=== PATIENT | male | born 1970 | race Hispanic/Latino ===

== ENCOUNTER 2016-11-14 11:37 | Emergency (ER) | payer OTHER ==
[2016-11-14 11:37] VITALS: BMI 23.0
[2016-11-14 11:48] VITALS: TEMP 98.3; O2SAT 99
--- NOTE | 2016-11-14 12:13 | ED PDOC ---
Arrival/HPI - General Chief Complaint: Back Pain Time Seen by Provider: 11/14/16 11:58 Historian: Patient - History of Present Illness Time/Duration: Other (5 days) Symptom Onset: Sudden Symptom Course: Unchanged Quality: Aching Severity Level: Moderate Associated Symptoms (Text): 11/14/16 12:10 Patient reports that at work 5 days prior to arrival he was lifting some heavy boxes and developed acute onset of left lower back pain. He was seen at another hospital emergency department that day and had x-rays done and was given a prescription for Valium and Percocet. He followed up with his compensation physician 2 days later and was given a prescription for Naprosyn which he was unable to fill until today and told to stop the Valium and Percocet. He was seen by a different compensation physician yesterday and cleared to go back to work today. 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 He denies abdominal pain nausea vomiting or diarrhea. No genitourinary symptoms. No radiation of the pain. No numbness tingling or paresthesias. No weakness. Past Medical History - Past History Past History: No Previous - Infectious Disease Hx of Infectious Diseases: None - Tetanus Immunization Tetanus Immunization: Up to Date - Past Medical History Past Medical History: No Previous - Renal Hx Kidney Stones: Yes - Hematological/Oncological Hx Blood Transfusions: No Hx Blood Transfusion Reaction: No - Musculoskeletal/Rheumatological Hx Back Pain: Yes - Gastrointestinal Hx Gastroesophageal Reflux: Yes - Psychiatric Hx Depression: No Hx Emotional Abuse: No Hx Physical Abuse: No - Past Surgical History Past Surgical History: No Previous - Surgical History Hx Orthopedic Surgery: Yes (L knee) - Anesthesia Hx Anesthesia: Yes Hx Anesthesia Reactions: No Hx Malignant Hyperthermia: No - Suicidal Assessment Feels Threatened In Home Enviroment: No Family/Social History - Physician Review Nursing Documentation Reviewed: Yes Family/Social History: Unknown Family HX Smoking Status: Never Smoked Hx Alcohol Use: No Hx Substance Use Treatment: No Allergies/Home Meds Allergies/Adverse Reactions: Allergies No Known Allergies Allergy (Verified 11/14/16 11:45) Home Medications: Home Meds Medication Instructions Recorded Confirmed Naproxen [Naprosyn] 500 mg PO Q12 11/14/16 11/14/16 Review of Systems - Physician Review All systems were reviewed & negative as marked: Yes - Review of Systems Constitutional: Normal Respiratory: Normal Cardiovascular: Normal Gastrointestinal: Normal Genitourinary Male: Normal Neurological: Normal Physical Exam Vital Signs Temp Pulse Resp BP Pulse Ox 11/14/16 12:29 98 H 17 115/85 99 11/14/16 11:39 98.3 F 110 H 19 111/81 99 Temperature: Afebrile Blood Pressure: Normal Pulse: Regular Respiratory Rate: Normal Appearance: Positive for: Well-Appearing, Non-Toxic, Uncomfortable Pain Distress: Mild Mental Status: Positive for: Alert and Oriented X 3 - Systems Exam Head: Present: Atraumatic, Normocephalic Neck: Present: Normal Range of Motion Respiratory/Chest: Present: Clear to Auscultation, Good Air Exchange. No: Respiratory Distress, Accessory Muscle Use Cardiovascular: Present: Regular Rate and Rhythm, Normal S1, S2. No: Murmurs Abdomen: Present: Normal Bowel Sounds. No: Tenderness, Distention, Peritoneal Signs, Rebound, Guarding Back: Present: Normal Inspection, Other (Points to the left lumbosacral paraspinous. No sciatic notch tenderness). No: CVA Tenderness, Midline Tenderness, Paraspinal Tenderness, Pain with Leg Raise Lower Extremity: Present: Normal Inspection. No: Edema Neurological: Present: GCS=15, CN II-XII Intact, Speech Normal, Motor Func Grossly Intact Skin: Present: Warm, Dry, Normal Color. No: Rashes Psychiatric: Present: Alert, Oriented x 3, Normal Insight, Normal Concentration Medical Decision Making ED Course and Treatment: 11/14/16 12:20 Add Flexeril to the Naprosyn prescription he filled today. Rest and moist heat. Follow with compensation M.D. A note for work was given. Follow up in ER as needed. Patient may need advanced imaging. - Medication Orders Current Medication Orders: Discontinued Medications Cyclobenzaprine HCl (Flexeril) 10 mg PO ONCE BRIE Last Admin: 11/14/16 12:25 Dose: 10 mg Ketorolac Tromethamine (Toradol) 60 mg IM ONCE ONE Stop: 11/14/16 12:10 Last Admin: 11/14/16 12:25 Dose: 60 mg Disposition/Present on Arrival - Present on Arrival Any Indicators Present on Arrival: No History of DVT/PE: No History of Uncontrolled Diabetes: No Urinary Catheter: No History of Decub. Ulcer: No History Surgical Site Infection Following: None - Disposition Have Diagnosis and Disposition been Completed?: Yes Diagnosis: Lumbar spine strain Disposition: HOME/ ROUTINE Disposition Time: 12:21 Patient Plan: Discharge Condition: GOOD Discharge Instructions (ExitCare): Acute Low Back Pain (ED) Additional Instructions: Rest and moist heat. Follow-up with compensation M.D. Follow up in ER as needed. Add Flexeril to the Naprosyn prescription filled today. Prescriptions: Cyclobenzaprine [Flexeril] 5 mg PO Q8 #15 tab Referrals: Milton Nick MD [Primary Care Provider] - Follow up with primary Forms: [facility] (Tajik), WORK NOTE
[2016-11-14 12:34] VITALS: BP 115/85; PULSE 98; RESP 17
== END 2016-11-14 12:45 | disposition home or self-care (01) ==
LOC: ED 11:37
DX: S39.012A Strain of muscle, fascia and tendon of lower back, initial encounter (principal); X50.0XXA Overexertion from strenuous movement or load, initial encounter; Y99.0 Civilian activity done for income or pay
CPT/HCPCS: 96372; 99284; J1885

== ENCOUNTER 2016-11-18 08:47 | Emergency (ER) | payer OTHER ==
[2016-11-18 08:47] VITALS: BMI 23.0
--- NOTE | 2016-11-18 09:37 | ED PDOC ---
Arrival/HPI <Dante Malhotra - Last Filed: 11/18/16 12:14> - General Historian: Patient EM Caveat: Acuity of Condition - History of Present Illness Time/Duration: > week Symptom Onset: Sudden Symptom Course: Unchanged Quality: Aching Severity Level: 6 Activities at Onset: Other (lifting boxes) Context: Work <Osbaldo Thomson - Last Filed: 11/18/16 15:22> - General Chief Complaint: Back Pain Time Seen by Provider: 11/18/16 08:55 - History of Present Illness Narrative History of Present Illness (Text): Patient is a 46 year old male who presents to the [facility] ED 11/18/16 with complaints of hip pain bilaterally as well as pain in the coccyx region. Patient states that the pain was trauma induced on 11/09 while he was lifting boxes at his job. He states that he felt a crack when lifting the box and immediately had problems ambulating on his left foot, which has now resolved. Patient states that his hip pain radiates to his mid thigh but that overall the pain is improving with current pain medicine regimen. Patient denies fever, chills, dysuria, saddle anesthesia, change in bowel movements, n/v/d. 11/18/16 09:51 (Osbaldo Thomson) Past Medical History - Provider Review Nursing Documentation Reviewed: Yes - Past History Past History: No Previous - Infectious Disease Hx of Infectious Diseases: None - Tetanus Immunization Tetanus Immunization: Up to Date - Past Medical History Past Medical History: No Previous - Renal Hx Kidney Stones: Yes - Hematological/Oncological Hx Blood Transfusions: No Hx Blood Transfusion Reaction: No - Musculoskeletal/Rheumatological Hx Back Pain: Yes - Gastrointestinal Hx Gastroesophageal Reflux: Yes - Psychiatric Hx Depression: No Hx Emotional Abuse: No Hx Physical Abuse: No - Past Surgical History Past Surgical History: No Previous - Surgical History Hx Orthopedic Surgery: Yes (L knee) - Anesthesia Hx Anesthesia: Yes Hx Anesthesia Reactions: No Hx Malignant Hyperthermia: No - Suicidal Assessment Feels Threatened In Home Enviroment: No <Osbaldo Thomson - Last Filed: 11/18/16 15:22> Family/Social History <Dante Malhotra - Last Filed: 11/18/16 12:14> - Physician Review Nursing Documentation Reviewed: Yes Family/Social History: Other Smoking Status: Never Smoked Hx Alcohol Use: No Hx Substance Use Treatment: No <ThomsonOsbaldo - Last Filed: 11/18/16 15:22> Narrative Family History (Free Text): non contributory 11/18/16 09:35 (Osbaldo Thomson) Allergies/Home Meds <Dante Malhotra - Last Filed: 11/18/16 12:14> <Osbaldo Thomson - Last Filed: 11/18/16 15:22> Allergies/Adverse Reactions: Allergies No Known Allergies Allergy (Verified 11/18/16 09:06) Home Medications: Home Meds Medication Instructions Recorded Confirmed Levocetirizine Dihydrochloride 0 mg PO DAILY 11/18/16 11/18/16 [Xyzal] Review of Systems - Physician Review All systems were reviewed & negative as marked: Yes - Review of Systems Systems not reviewed;Unavailable: Acuity of Condition Constitutional: absent: Fatigue, Weight Change, Night Sweats Respiratory: absent: SOB, Cough, Wheezing Cardiovascular: absent: Chest Pain, Palpitations Gastrointestinal: absent: Abdominal Pain, Diarrhea Genitourinary Male: absent: Dysuria, Frequency, Hematuria Musculoskeletal: Back Pain. absent: Joint Swelling Skin: Rash (chronic, for past 3 years) Neurological: absent: Headache, Dizziness, Focal Weakness Endocrine: Normal Psychiatric: Normal <Osbaldo Thomson - Last Filed: 11/18/16 15:22> Physical Exam - Physical Exam Physical Exam Limitations: Altered Mental Status Vital Signs Reviewed: Yes Temperature: Afebrile Blood Pressure: Normal Pulse: Regular Respiratory Rate: Normal Appearance: Positive for: Well-Appearing, Non-Toxic, Comfortable Pain Distress: None Mental Status: Positive for: Alert and Oriented X 3 - Systems Exam Head: Present: Atraumatic, Normocephalic Extroacular Muscles: Present: EOMI Conjunctiva: Present: Normal Mouth: Present: Moist Mucous Membranes. No: Drooling Neck: Present: Normal Range of Motion Respiratory/Chest: Present: Clear to Auscultation, Good Air Exchange Cardiovascular: Present: Regular Rate and Rhythm, Murmurs, Normal S1, S2 Abdomen: Present: Tenderness, Distention, Normal Bowel Sounds Upper Extremity: Present: Normal Inspection Neurological: Present: CN II-XII Intact, Motor Func Grossly Intact, Normal Sensory Function, Normal Cerebellar Funct, Gait Normal, Other ( positive straight leg test bilaterally) Skin: Present: Rashes Psychiatric: Present: Alert, Oriented x 3 <Osbaldo Thomson - Last Filed: 11/18/16 15:22> Vital Signs Temp Pulse Resp BP Pulse Ox 11/18/16 10:14 98.2 F 70 18 145/84 99 11/18/16 09:02 98.7 F 92 H 16 138/89 98 Medical Decision Making <Dante Malhotra - Last Filed: 11/18/16 12:14> Re-evaluation Time: 10:00 (Patient was re-evaluated after administration of lidocaine patch. Patient states symptoms were resolving. Physical exam findings have improved; patient still has some discomfort with straight leg test but results have improved. Patient still able to ambulate on left foot, gait is normal. ) Reassessment Condition: Improved <Osbaldo Thomson - Last Filed: 11/18/16 15:22> ED Course and Treatment: 11/18/16 Patient Seen With Resident: In agreement with resident note which contains more details about the patient. Patient was seen and evaluated with resident. Came up with plan and treatment together. (Dante Malhotra) Assessment 46 year old male with pain in coccyx and B/L hips. Plan - Lidocaine patch 11/18/16 09:50 (Osbaldo Thomson) - Medication Orders Current Medication Orders: Discontinued Medications Lidocaine (Lidoderm) 1 ea TD DAILY BRIE Last Admin: 11/18/16 10:00 Dose: 1 ea - PA / SIGNING AGENT / Resident Statement MD/DO has reviewed & agrees with the documentation as recorded. MD/DO has examined the patient and agrees with the treatment plan. - Scribe Statement The provider has reviewed the documentation as recorded by the Scribe <Dante Malhotra - Last Filed: 11/18/16 12:14> <Osbaldo Thomson - Last Filed: 11/18/16 15:22> - Scribe Statement 11/18/2016 Glory Arnold Provider Scribe Attestation: All medical record entries made by the Scribe were at my direction and personally dictated by me. I have reviewed the chart and agree that the record accurately reflects my personal performance of the history, physical exam, medical decision making, and the department course for this patient. I have also personally directed, reviewed, and agree with the discharge instructions and disposition. (Dante Malhotra) Disposition/Present on Arrival <Dante Malhotra - Last Filed: 11/18/16 12:14> - Present on Arrival Any Indicators Present on Arrival: No History of DVT/PE: No History of Uncontrolled Diabetes: No Urinary Catheter: No History of Decub. Ulcer: No History Surgical Site Infection Following: None - Disposition Have Diagnosis and Disposition been Completed?: Yes Disposition Time: 10:13 Patient Plan: Discharge <Osbaldo Thomson - Last Filed: 11/18/16 15:22> - Disposition Diagnosis: Hip pain Disposition: HOME/ ROUTINE Condition: GOOD Additional Instructions: Please fill and take medication as prescribed. Continue to take pain medication received from [facility] 11/14/16. Continue with warm compress and rest. Follow up with comp physician, possibly recommend referral for physical therapy. If symptoms worsen please return to emergency department. Prescriptions: Lidocaine 5% [Lidoderm] 1 ea TD ONCE 5 Days Forms: [facility] (Romanian), WORK NOTE
[2016-11-18] MEDS ORDERED: Lidocaine 5% Patch TD SCH (10:00)
[2016-11-18 10:14] VITALS: BP 145/84; PULSE 70; RESP 18; TEMP 98.2; O2SAT 99
== END 2016-11-18 10:25 | disposition home or self-care (01) ==
LOC: ED 08:47
DX: M25.552 Pain in left hip (principal); M25.551 Pain in right hip